=== PATIENT | male | born 1970 | race Caucasian/White ===

== ENCOUNTER 2021-12-07 17:24 | Emergency (ER) | payer MEDICAID ==
[2021-12-07 17:52] VITALS: BP 137/77; PULSE 86
== END 2021-12-07 17:47 ==
LOC: MW.ED 17:24
DX: Z00.00 Encounter for general adult medical examination without abnormal findings (principal); I10 Essential (primary) hypertension; K21.9 Gastro-esophageal reflux disease without esophagitis; Z79.01 Long term (current) use of anticoagulants; Z79.899 Other long term (current) drug therapy
CPT/HCPCS: 99282; 99283